=== PATIENT | female | born 1970 | race Caucasian/White ===

== ENCOUNTER 2018-03-07 13:10 | Day surgery (SDC) | payer OTHER ==
[~2018-03-07] VITALS: Ht 160 cm; Wt 54.4 kg
[~2018-03-07 13:10] MED LIST: BACITRACIN 50,000 UNIT ONE; BUPIVACAINE/PF 0.5% ONE; LIDOCAINE/PF 1%, 30ML ONE; SODIUM BICARBONATE 1 MEQ/ML, 50ML VIAL ONE
[2018-03-07] MEDS ORDERED: LACTATED RINGERS 1,000 ML IV SCH (13:35)
[2018-03-07 13:58] VITALS: BP 107/63
[2018-03-07] MEDS ORDERED: PLEASE ENTER HEIGHT AND WEIGHT MC SCH (14:00)
[2018-03-07] MEDS ORDERED: TAMO20TA PO (14:09)
[2018-03-07] MEDS ORDERED: SERT100T5 PO (14:09)
[2018-03-07] MEDS ORDERED: BUPR-173 PO (14:09)
[2018-03-07] MEDS ORDERED: MIDAZOLAM 1 MG/ML, 2ML ONE (14:15)
[2018-03-07] MEDS ORDERED: FENTANYL PF 250 MCG/5ML ONE (14:33)
[2018-03-07] MEDS ORDERED: ONDANSETRON 2MG/ML, 2ML ONE (14:51)
[2018-03-07] MEDS ORDERED: PROPOFOL 10 MG/ML, 20ML ONE (14:51)
[2018-03-07] MEDS ORDERED: DEXAMETHASONE 4 MG/ML, 1ML ONE (14:51)
[2018-03-07] MEDS ORDERED: KETOROLAC 30 MG/1 ML ONE (14:51)
[2018-03-07] MEDS ORDERED: BUPIVACAINE/PF-EPI 0.5% 1:200K ONE (14:58)
[2018-03-07] MEDS ORDERED: LIDOCAINE/PF 1%, 30ML ONE (14:59)
[2018-03-07] MEDS ORDERED: hydrALAzine 20 MG/ML, 1ML IV PRN (15:00)
[2018-03-07] MEDS ORDERED: HYDROmorphone 1 MG/ML, 1ML IV PRN (15:00)
[2018-03-07] MEDS ORDERED: OXYcodone 5 MG/5 ML ORAL.SOL UDC PO PRN (15:00)
[2018-03-07] MEDS ORDERED: ONDANSETRON 2MG/ML, 2ML IV PRN (15:00)
[2018-03-07] MEDS ORDERED: FENTANYL PF 100 MCG/2ML IV PRN (15:00)
[2018-03-07] MEDS ORDERED: LABETALOL 5MG/ML, 20ML IV PRN (15:00)
[2018-03-07] MEDS ORDERED: ACETAMINOPHEN 325 MG TABLET PO PRN (15:00)
[2018-03-07] MEDS ORDERED: HALOPERIDOL 5 MG/ML IV PRN (15:00)
[2018-03-07] MEDS ORDERED: MEPERIDINE/PF 25MG/0.5ML IVPush PRN (15:00)
[2018-03-07] MEDS ORDERED: CEFAZOLIN 1,000 MG ONE (15:09)
[2018-03-07] MEDS ORDERED: ACETAMINOPHEN 650 MG/20.3 ML UDC ONE (16:05)
== END 2018-03-07 17:20 | disposition home or self-care (01) ==
LOC: OR 13:10
PROVIDERS: ATTEND Plastic Surgery
DX: C50.911 Malignant neoplasm of unspecified site of right female breast (principal); Q83 Congenital malformations of breast; Z98.890 Other specified postprocedural states; Z88.5 Allergy status to narcotic agent
CPT/HCPCS: 11606; 19350; 81025; 88305; J0690; J1100; J1885; J2250; J2405; J2704; J3010; J3490; J7120